=== PATIENT | female | born 1965 | race Two or more races ===

== ENCOUNTER 2024-01-22 15:56 | Emergency (ER) | payer BC, OTHER ==
[~2024-01-22] VITALS: Ht 160 cm; Wt 79.1 kg
[2024-01-22] MEDS: CEPHALEXIN 250 MG CAP PO ONE (16:58)
[2024-01-22 17:21] LABS: Basophils # (auto) 0 10 ^3/uL (0-0.2); Basophils % (auto) 0.4 % (0.0-2.0); Eosinophils # (auto) 0.1 10 ^3/uL (0-0.8); Eosinophils % (auto) 1.3 % (0.0-7.0); Hematocrit 33.5 % (36.0-46.0); Hemoglobin 11.4 g/dL (12.2-16.2); Lymphocytes % (auto) 12.4 % (10.0-50.0); Mean Corpuscular Hgb Conc. 33.9 g/dL (32.0-36.0); Mean Corpuscular Volume 94.4 fL (80.0-100.0); Monocytes % (auto) 11.9 % (0.0-12.0); Neutrophils # (auto) 6.1 10 ^3/uL (1.6-8.6); Red Blood Cells 3.55 10^6/uL (4.0-5.20); Red Cell Distribution Width 12.6 % (11.8-14.3); White Blood Cell 8.3 10^3/uL (4.4-10.8)
[2024-01-22] MEDS: IOHEXOL 300 MG/ML 100ML BOTTLE IJ ONE (17:31)
[2024-01-22 17:41] LABS: Alanine Aminotransferase 141 U/L (7-40); Albumin 4.2 g/dL (3.2-4.8); Alkaline Phosphatase 76 U/L (46-116); Anion Gap 5 (5-15); Aspartate Aminotransferase 154 U/L (13-40); BUN/Creatinine Ratio 16.3 (10.0-20.0); Bilirubin, Total 0.2 mg/dL (0.2-1.0); Blood Urea Nitrogen 14 mg/dL (9-23); Calcium 9.5 mg/dL (8.5-10.1); Carbon Dioxide 28 mmol/L (20-30); Chloride 104 mmol/L (98-107); Glucose 120 mg/dL (74-106); Potassium 3.7 mmol/L (3.5-5.1); Sodium 137 mmol/L (136-145); Total Protein 7.1 g/dL (5.7-8.2)
[2024-01-22] MEDS ORDERED: CLIN300C70 PO (21:31)
[2024-01-22] MEDS ORDERED: CEPH500C PO (21:31)
[2024-01-22] MEDS: CLINDAMYCIN HCL 150 MG CAP PO ONE (21:35)
[2024-01-22 21:38] VITALS: BP 123/63; PULSE 83; RESP 18; TEMP 98.6; O2SAT 96
== END 2024-01-22 21:39 | disposition home or self-care (01) ==
LOC: ER 15:56
DX: T81.40XA Infection following a procedure, unspecified, initial encounter (principal); N61.1 Abscess of the breast and nipple; Z98.890 Other specified postprocedural states; Y92.89 Other specified places as the place of occurrence of the external cause
CPT/HCPCS: 36415; 71260; 80053; 83605; 85025; 99285; Q9967